=== PATIENT | female | born 1965 | race Caucasian/White ===

== ENCOUNTER 2018-11-19 12:16 | Emergency (ER) | payer SELFPAY ==
[2018-11-19] MEDS ORDERED: Ibuprofen 800 MG TAB ONE (12:40)
--- NOTE | 2018-11-19 13:17 | RAD ---
2 VIEW CHEST: Date: 11/19/18 INDICATION: Cold-like symptoms, cough. FINDINGS: Cardiac silhouette is prominent. There is mild interstitial prominence of the perihilar regions. No e ffusion or pneumothorax. IMPRESSION: No focal consolidation. POS: H
== END 2018-11-19 13:29 | disposition home or self-care (01) ==
LOC: ERS 12:16
DX: J10.1 Influenza due to other identified influenza virus with other respiratory manifestations (principal); K21.9 Gastro-esophageal reflux disease without esophagitis; E03.9 Hypothyroidism, unspecified; G43.909 Migraine, unspecified, not intractable, without status migrainosus; E66.9 Obesity, unspecified; J45.909 Unspecified asthma, uncomplicated; I10 Essential (primary) hypertension
CPT/HCPCS: 71046; 87804